=== PATIENT | female | born 1940 | race African-American/Black ===

== ENCOUNTER 2020-03-08 04:58 | Inpatient (IN) | payer MEDICARE ==
[~2020-03-08] VITALS: Ht 162.6 cm; Wt 53.5 kg
[~2020-03-08 04:58] MED LIST: BUPROPN HCL; DONE5TAB7; PRAV40TA; TRAM50TA94; XALAO EACHEYE
[2020-03-08] MEDS ORDERED: SODIUM CHLORIDE 0.9% 1,000 ML IV ONE (06:22)
[2020-03-08 06:54] LABS: BASOPHILS % 0.3 % (0.0-2.0); EOSINOPHILS % 0.4 % (0.0-5.0); HEMOGLOBIN. 12.6 g/dL (12.0-16.0); LYMPHOCYTES % 10.5 % (20.0-50.0); MEAN CORPUSCULAR HEMOGLOBIN 26.9 pg (28.0-32.0); MEAN CORPUSCULAR VOLUME 81.3 fL (81.0-99.0); MEAN PLATELET VOLUME 8.8 fl (7.4-10.4); MONOCYTES % 6.7 % (2.0-8.0); NEUTROPHILS % 82.1 % (40.0-76.0); PLATELET 152 x1000/uL (130-400); RED BLOOD CELL COUNT 4.68 mill/uL (4.2-5.4); RED CELL DISTRIBUTION WIDTH 15.2 % (11.6-14.6)
[2020-03-08 06:56] LABS: CHLORIDE 106 mEq/L (98-107)
[2020-03-08 07:01] LABS: ETHANOL BLOOD < 10 mg/dL
[2020-03-08 10:50] LABS: CLARITY URINE CLEAR (CLEAR); COLOR URINE YELLOW (YELLOW); KETONES URINE 1+ (NEGATIVE); LEUKOCYTE ESTERASE URINE NEGATIVE (NEGATIVE); NITRITE URINE NEGATIVE (NEGATIVE); OCCULT BLOOD URINE 1+ (NEGATIVE); PH URINE 7.5 (4.5-8.0); PROTEIN URINE NEGATIVE (NEGATIVE); UROBILINOGEN URINE 0.2 E.U./dL (0.2-1.0)
[2020-03-08 11:51] LABS: *AMPHETAMINES SCREEN URINE NEGATIVE (NEGATIVE); *BARBITURATES SCREEN URINE NEGATIVE (NEGATIVE); *BENZODIAZEPINES SCREEN URINE NEGATIVE (NEGATIVE)
[2020-03-08 11:52] LABS: *COCAINE SCREEN URINE NEGATIVE (NEGATIVE); CANNABINOID URINE SCREEN NEGATIVE (NEGATIVE); METHADONE URINE SCREEN NEGATIVE (NEGATIVE); OPIATES URINE SCREEN NEGATIVE (NEGATIVE); PHENCYCLIDINE URINE SCREEN NEGATIVE (NEGATIVE)
[2020-03-08] MEDS ORDERED: IPRATROPIUM/ALBUTEROL 0.5-3(2.5)MG/3ML NEB NEB PRN (12:15)
[2020-03-08] MEDS ORDERED: HYDROCODONE/ACETAMINOPHEN 5/325MG TABLET PO PRN (12:15)
[2020-03-08] MEDS ORDERED: GUAIFENESIN 200MG/10ML SUGAR FREE UDC PO PRN (12:15)
[2020-03-08] MEDS ORDERED: ACETAMINOPHEN 650MG SUPP PR PRN (12:15)
[2020-03-08] MEDS ORDERED: NA PHOS,M-B/NA PHOS,DI-BA ENEMA 118ML PR PRN (12:15)
[2020-03-08] MEDS ORDERED: LORAZEPAM 0.5MG TABLET PO PRN (12:15)
[2020-03-08] MEDS ORDERED: MAGNESIUM/ALUMINUM HYDROXIDE/SIMETHICONE 30ML UDC PO PRN (12:15)
[2020-03-08] MEDS ORDERED: ONDANSETRON HCL 4MG/2ML INJ IV PRN (12:15)
[2020-03-08] MEDS ORDERED: ACETAMINOPHEN 325MG TABLET PO PRN (12:15)
[2020-03-08] MEDS ORDERED: DIPHENHYDRAMINE 50MG/ML VIAL IV PRN (12:15)
[2020-03-08] MEDS ORDERED: HYDRALAZINE 20MG/ML VIAL IV PRN (12:15)
[2020-03-08] MEDS ORDERED: DOCUSATE SODIUM 100MG CAPSULE PO PRN (12:15)
[2020-03-08] MEDS ORDERED: DOPAMINE 400MG/250ML PREMIX 250 ML IV PRN (13:00)
[2020-03-08 16:33] LABS: CREATINE KINASE MB FRACTION 58.2 ng/mL (0.5-3.6)
[2020-03-08 16:37] LABS: CREATINE KINASE 2600 IU/L (26-192)
[2020-03-08] MEDS ORDERED: DEXTROSE 50% WATER 50ML SYRINGE IV ONE (20:13)
[2020-03-08] MEDS: DEXT 5%/0.45% NACL 1000ML 1,000 ML IV SCH (20:20)
[2020-03-08] MEDS: ATORVASTATIN CALCIUM 10MG TABLET PO SCH (21:00)
[2020-03-08] MEDS: FAMOTIDINE 20MG TABLET PO SCH (21:00)
[2020-03-08 21:20] VITALS: BP 156/52
[2020-03-08 22:24] VITALS: BP 156/52
[2020-03-08] MEDS: LATANOPROST 0.005% OPHTH DROPS 2.5ML EACHEYE SCH (23:25)
[2020-03-09] VITALS: BP 144/52
[2020-03-09 04:00] VITALS: BP 125/60
[2020-03-09] MEDS: ASPIRIN 81MG EC TABLET PO SCH (08:12)
[2020-03-09 08:30] VITALS: BP 143/86
[2020-03-09 10:06] LABS: T4 FREE 1.48 ng/dL (0.76-1.46)
[2020-03-09 10:07] LABS: LDL CHOLESTEROL 51 mg/dL (5-100)
[2020-03-09 10:08] LABS: HDL CHOLESTEROL 60 mg/dL (40-59)
[2020-03-09 10:20] LABS: CREATINE KINASE 1498 IU/L (26-192)
[2020-03-09 10:53] LABS: CHLORIDE 106 mEq/L (98-107)
[2020-03-09 11:07] LABS: BASOPHILS % 0.3 % (0.0-2.0); EOSINOPHILS % 1.7 % (0.0-5.0); HEMATOCRIT. 37.9 % (36.0-48.0); HEMOGLOBIN. 12.6 g/dL (12.0-16.0); LYMPHOCYTES % 10.2 % (20.0-50.0); MEAN CORPUSCULAR HEMOGLOBIN 27.3 pg (28.0-32.0); MEAN PLATELET VOLUME 8.7 fl (7.4-10.4); MONOCYTES % 6.5 % (2.0-8.0); NEUTROPHILS % 81.3 % (40.0-76.0); PLATELET 140 x1000/uL (130-400); RED BLOOD CELL COUNT 4.62 mill/uL (4.2-5.4); RED CELL DISTRIBUTION WIDTH 15.1 % (11.6-14.6)
[2020-03-09] MEDS ORDERED: POTASSIUM CHLORIDE 20MEQ TABLET SR PO NR (11:30)
[2020-03-09 12:30] VITALS: BP 124/52
[2020-03-09] MEDS ORDERED: LEVETIRACETAM 250MG TABLET PO NR (14:15)
[2020-03-09 16:00] VITALS: BP 130/55
[2020-03-09] MEDS: DEXT 5%/0.45% NACL 1000ML 1,000 ML IV SCH (16:15)
[2020-03-09 20:00] VITALS: BP 104/70
[2020-03-09] MEDS: LATANOPROST 0.005% OPHTH DROPS 2.5ML EACHEYE SCH (21:45)
[2020-03-09] MEDS: ATORVASTATIN CALCIUM 10MG TABLET PO SCH (21:45)
[2020-03-09] MEDS: FAMOTIDINE 20MG TABLET PO SCH (21:45)
[2020-03-09] MEDS: LEVETIRACETAM 250MG TABLET PO SCH (21:45)
[2020-03-10] VITALS (7 sets, daily range): BP systolic 121–164; BP diastolic 48–73
[2020-03-10 05:38] LABS: CHLORIDE 103 mEq/L (98-107)
[2020-03-10 05:55] LABS: CREATINE KINASE 861 IU/L (26-192)
[2020-03-10 05:56] LABS: CREATINE KINASE MB FRACTION 6.3 ng/mL (0.5-3.6)
[2020-03-10 06:38] LABS: HEMOGLOBIN 13.4 g/dL (12.0-16.0); MEAN CORPUSCULAR HEMOGLOBIN 27.3 pg (28.0-32.0); MEAN CORPUSCULAR VOLUME 81.3 fL (81.0-99.0); PLATELET 161 x1000/uL (130-400); RED BLOOD CELL COUNT 4.92 mill/uL (4.2-5.4)
[2020-03-10] MEDS: ASPIRIN 81MG EC TABLET PO SCH (09:15)
[2020-03-10] MEDS: LEVETIRACETAM 250MG TABLET PO SCH ×2 (09:15→20:55)
[2020-03-10] MEDS: DEXT 5%/0.45% NACL 1000ML 1,000 ML IV SCH ×2 (09:16→12:15)
[2020-03-10] MEDS ORDERED: KEPP250 MT (11:45)
[2020-03-10] MEDS: ATORVASTATIN CALCIUM 10MG TABLET PO SCH (20:55)
[2020-03-10] MEDS: FAMOTIDINE 20MG TABLET PO SCH (20:55)
[2020-03-10] MEDS: LATANOPROST 0.005% OPHTH DROPS 2.5ML EACHEYE SCH (20:55)
== END 2020-03-10 22:03 | disposition home or self-care (01) | DRG 70 ==
LOC: ER 04:58 → 5WST 10:11 → EDBEDREQTM 10:16 → EDBEDREQ 10:16 → SUPCPDRO 12:13 → ENRESERV 20:05
PROVIDERS: ADMIT Internal Medicine; ATTEND Internal Medicine
PROC: 4A10X4Z Monitoring of Central Nervous Electrical Activity, External Approach (ICD-10-PCS; principal; 2020-03-09)
DX: G93.41 Metabolic encephalopathy (principal); I50.33 Acute on chronic diastolic (congestive) heart failure; M62.82 Rhabdomyolysis; E44.1 Mild protein-calorie malnutrition; R55 Syncope and collapse; G93.89 Other specified disorders of brain; E87.6 Hypokalemia; F03.90 Unspecified dementia, unspecified severity, without behavioral disturbance, psychotic disturbance, mood disturbance, and anxiety; E78.5 Hyperlipidemia, unspecified; I27.20 Pulmonary hypertension, unspecified; I11.0 Hypertensive heart disease with heart failure; R00.1 Bradycardia, unspecified; R56.9 Unspecified convulsions; I34.0 Nonrheumatic mitral (valve) insufficiency; G90.8 Other disorders of autonomic nervous system; T44.1X5A Adverse effect of other parasympathomimetics [cholinergics], initial encounter; Z86.73 Personal history of transient ischemic attack (TIA), and cerebral infarction without residual deficits; Z88.0 Allergy status to penicillin; Z98.2 Presence of cerebrospinal fluid drainage device; Y92.89 Other specified places as the place of occurrence of the external cause; Z68.20 Body mass index [BMI] 20.0-20.9, adult
CPT/HCPCS: 36415; 70551; 71045; 72170; 80048; 80053; 80061; 80305; 80320; 81003; 82140; 82550; 82553; 82962; 83036; 83880; 84439; 84443; 84484; 85025; 85027; 92610; 93005; 93306; 93880; 95816; 97162; 97166; 97530; 99285; J7030; G0480